=== PATIENT | female | born 1965 | race Caucasian/White ===

== ENCOUNTER → 2018-07-13 | Emergency (ER) | payer SELFPAY ==
[~2018-07-13] VITALS: Ht 160 cm; Wt 72.6 kg
[2018-07-13 23:04] LABS: BASOPHIL % 0.6 % (0-2); PLATELET COUNT 382 x10^3mcL (130-400); RED CELL DISTRIBUTION WIDTH 13.1 % (11.5-14.5)
[2018-07-13 23:10] VITALS: BP 135/100
[2018-07-13 23:10] LABS: CALCIUM 9.3 mg/dL (8.5-10.1); CARBON DIOXIDE 29.6 mmol/L (21-32); CHLORIDE SERUM 107 mmol/L (98-107); CREATININE SERUM 0.9 mg/dL (0.6-1.0); GFR1 > 60 mL/min; GLUCOSE SERUM 109 mg/dL (74-106); POTASSIUM SERUM 3.7 mmol/L (3.5-5.1); SODIUM SERUM 144 mmol/L (136-145)
[2018-07-13 23:15] LABS: ALBUMIN 4.2 g/dL (3.4-5.0); ALKALINE PHOSPHATASE 100 U/L (46-116); ALT/SGPT 36 U/L (14-59); AST/SGOT 18 U/L (15-37); BILIRUBIN TOTAL 0.59 mg/dL (0.20-1.00); LIPASE 100 IU/L (73-393); TOTAL PROTEIN, SERUM 7.9 g/dL (6.4-8.2)
== END ==
LOC: ED 22:29
PROVIDERS: Emergency Medicine
DX: R10.32 Left lower quadrant pain (principal)
CPT/HCPCS: 36415; G0480